=== PATIENT | female | born 1960 | race Caucasian/White ===

== ENCOUNTER 2022-12-16 11:02 | Observation (INO) ==
[2022-12-16] MEDS ORDERED: ASPIRIN CHEWABLE PO STA (11:07)
[2022-12-16 11:21] LABS: BASOPHILS # (AUTO) 0.1 K/uL (0-0.2); BASOPHILS % (AUTO) 0.7 % (0.0-3.0); EOSINOPHILS # (AUTO) 0.3 K/ul (0.0-0.7); EOSINOPHILS % (AUTO) 2.6 % (0.0-7.0); HEMATOCRIT 48.2 % (37.0-47.0); HEMOGLOBIN 15.8 g/dl (12.0-16.0); IMMATURE GRANULOCYTE % (AUTO) 0.2 % (0.0-5.0); LYMPHOCYTES # (AUTO) 4.2 K/uL (0.60-3.4); LYMPHOCYTES % (AUTO) 41.6 (10.0-50.0); MEAN CORPUSCULAR HEMOGLOBIN 28.1 pg (27.0-31.0); MEAN CORPUSCULAR HGB CONC 32.8 (31.8-35.4); MEAN CORPUSCULAR VOLUME 85.8 fl (81.0-99.0); MONOCYTES # (AUTO) 0.8 K/uL (0.4-2.0); MONOCYTES % (AUTO) 8.1 (0-10); NEUTROPHILS # (AUTO) 4.8 K/ul (2.0-6.9); NEUTROPHILS % (AUTO) 46.8 % (42.2-75.2); PLATELET COUNT 246 10^3/uL (140-440); RDW COEFFICIENT OF VARIATION 13.1 % (11.6-14.8); RED BLOOD COUNT 5.62 10^6/ul (4.20-5.40); WHITE BLOOD COUNT 10.18 K/ul (4.6-10.2)
[2022-12-16 11:32] LABS: ALANINE AMINOTRANSFERASE 28.2 U/L (0-35); ALKALINE PHOSPHATASE 85.5 U/L (53-141); ASPARTATE AMINO TRANSFERASE 37.6 U/L (14-36); BILIRUBIN,TOTAL 0.98 mg/dL (0.2-1.3); BLOOD UREA NITROGEN 17.3 mg/dL (7-17); CARBON DIOXIDE 28.6 mmol/L (22-30.0); CHLORIDE 103.6 mmol/L (98-107); CREATININE 0.79 mg/dL (0.60-1.30); GLUCOSE 92.1 mg/dL (74-106); POTASSIUM 3.71 mmol/L (3.5-5.1); SODIUM 141.6 mmol/L (134.5-145); TOTAL PROTEIN 8.93 g/dL (6.3-8.2)
--- NOTE | 2022-12-16 11:37 | ED.PDOC ---
General ED Provider: Dr. 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 Patient reports she has had increasing chest tightness and pain for months No hx of ACS or echo/stress testing Patient had a stroke in the past with L sided sensory deficits She cannot describe details of stroke well-she is a poor historian No diaphoresis, no nausea, no vomiting She came to the ED because the chest pain was migrating to Her L arm and face Her symptoms are mild to non existent know but were worse last night per patient Full dose aspirin given Time Seen by Provider: 12/16/22 11:06 Information Source: Patient Primary Care Provider: WENDY SANDERS Nursing and Triage Documentation Reviewed and Agree: Yes Does patient meet sepsis criteria?: No System Inflammatory Response Syndrome: Not Applicable Sepsis Protocol: For patient's 13 years and over: Temp is 96.8 and below OR 101 and greater Pulse >90 BPM Resp >20/minute Acutely Altered Mental Status Are patient's symptoms suggestive of a new infection, such as: -Pneumonia -Skin, Soft Tissue -Endocarditis -UTI -Bone, Joint Infection -Implantable Device -Acute Abdominal Infection -Wound Infection -Meningitis -Blood Stream Catheter Infection -Unknown Review of Systems Review Of Systems Constitutional: Denies Chills, Diaphoresis or Fever Eyes: Denies Blindness, Blurred vision or Foreign body sensation Ears, Nose, Mouth, Throat: Denies Ear pain or Ear discharge Respiratory: Denies Cough, Short of air or Wheezing Cardiac: Reports Chest pain and Lightheadedness; Denies Irregular heart rate, Palpitations or Syncope GI: Denies Abdomen distended, Abdominal pain or Diarrhea : Denies Burning, Dysuria or Discharge Musculoskeletal: Denies Back pain or Joint swelling Skin: Denies Bruising or Lesions Neurological: Denies Anxiety or Depressed Endocrine: Denies Excessive sweating, Flushing or Intolerance to cold Hematologic/Lymphatic: Denies Anemia or Easy bruising All Other Systems: Reviewed and Negative [facility] Social History Smoking and tobacco status: Never smoker Physical Exam Physical Exam Appearance: Reports Well-appearing, No pain distress and Obese Ill-appearing: Not Applicable Pain Distress: Not Applicable Eyes: Reports TREVOR and EOMI ENT: Reports Ears normal and Nose normal Neck: Supple Respiratory: Reports Airway patent and Breath sounds clear Cardiovascular: Reports RRR and Pulses normal GI/: Reports Soft and Nontender Musculoskeletal: Reports Normal strength and ROM intact Skin: Reports Warm and Dry Neurological: Reports Sensation intact and Motor intact Psychiatric: Reports Affect appropriate and Mood appropriate Interpretation EKG Interpretation Time of EKG #1: 11:07 Rate: Normal Rhythm: Sinus Ectopy: None [place]: NL ST Segment: Normal Interpretation: rate 83 RBBB no previous for comparison, THis EKG interpreted by nj Critical Care Note Critical Care Note Total Critical Care Time (mins): 0 Course Course 12/16/22 11:15 12/16/22 11:15 Orders, Labs, Meds: Lab Review 12/16/22 12/16/22 11:15 13:31 WBC 10.18 RBC 5.62 H Hgb 15.8 Hct 48.2 H MCV 85.8 MCH 28.1 MCHC 32.8 RDW Coeff of Nithya 13.1 Plt Count 246 Immature Gran % (Auto) 0.2 Neut % (Auto) 46.8 Lymph % (Auto) 41.6 [place] % (Auto) 8.1 Eos % (Auto) 2.6 Baso % (Auto) 0.7 Neut # (Auto) 4.8 Lymph # (Auto) 4.2 H [place] # (Auto) 0.8 Eos # (Auto) 0.3 Baso # (Auto) 0.1 Immature Gran # (Auto) 0.0 Sodium 141.6 Potassium 3.71 Chloride 103.6 Carbon Dioxide 28.6 Anion Gap 13.11 BUN 17.3 H Creatinine 0.79 Estimated GFR (MDRD) 74.00 BUN/Creatinine Ratio 21.89 Glucose 92.1 Calcium 9.50 Total Bilirubin 0.98 AST 37.6 H ALT 28.2 Alkaline Phosphatase 85.5 Troponin I < 0.012 Total Protein 8.93 H Albumin 5.00 Globulin 3.93 Albumin/Globulin Ratio 1.27 D-Dimer 2182.21 H SARS CoV-2 RNA Rapid KAHLIL Negative Orders Category Date Time Status ADMIT OBSERVATION [PLACE PATIENT OBSERVATION] .TO ADMISSION 12/16/22 14:23 Active MEDSURG (MONITORED BED) EKG-(ED ONLY) Stat CARDIO 12/16/22 11:07 Completed NPO REMINDER: IMAGING ONCE CARE 12/16/22 11:54 Completed TELEMETRY MONITORING TELE CARE 12/16/22 14:25 Active ED ALTERNATIVE DISPUTE RESOLUTION MEDIATOR APPLIED .ONCE EMERGENCY 12/16/22 11:07 Active ED IV/MEDIPORT/POWERPORT .ONCE EMERGENCY 12/16/22 11:07 Active CBC W/ AUTO DIFF Stat LAB 12/16/22 11:15 Completed COMPREHENSIVE METABOLIC PANEL Stat LAB 12/16/22 11:15 Completed COVID [SARS COV-2 RNA RAPID KAHLIL] Stat LAB 12/16/22 13:31 Completed D-DIMER Stat LAB 12/16/22 11:15 Completed TROPONIN I Stat LAB 12/16/22 11:15 Completed 0.9 % Sodium Chloride [Saline Flush] MEDS 12/16/22 11:07 Active 1 syr IVF PRN PRN Aspirin [Aspirin Chewable] MEDS 12/16/22 11:07 Discontinued 324 mg PO ONCE STA CT CHEST PE PROTOCOL Stat RADS 12/16/22 11:54 Completed CXR [CHEST, 2 VIEWS PA & LAT] Stat RADS 12/16/22 11:07 Completed Medications Generic Name Dose Route Start Last Admin Trade Name Freq PRN Reason Stop Dose Admin Sodium Chloride 1 syr 12/16/22 11:07 0.9% Sodium Chloride 10 Ml Disp.Syrin IVF PRN PRN To flush IV Discontinued Medications Generic Name Dose Route Start Last Admin Trade Name Freq PRN Reason Stop Dose Admin Aspirin 324 mg 12/16/22 11:07 12/16/22 11:56 Aspirin 81 Mg Tab.Chew PO 12/16/22 11:08 324 mg ONCE STA Administration Vital Signs: Temp Pulse Resp BP Pulse Ox 12/16/22 11:10 98.1 F 92 16 161/91 H 98 d dimer 2000+, CT PE ordered MDM: Patient is a 62 yo F here for CHest pain Patient afebrile and vitally stable Hx from patient Chart review by me COnsult to Hospitalist team Dr. Lavell Blanco 3+ labs and 3 Images reviewed by me WDX: Chest pain rule out myocardial infarction, sepsis, PE, Stemi but these are less likely Patient amenable to observation We discussed plan and findings SDOH: Patient underinsured will improve with observation and Hospitalist support All questions answered GISEL Risk Score GISEL Risk Score: Risk Score Odds of by 30D 0 0.1 (0.1-0.2) 1 0.3 (0.2-0.3) 2 0.4 (0.3-0.5) 3 0.7 (0.6-0.9) 4 1.2 (1.0-1.5) 5 2.2 (1.9-2.6) 6 3.0 (2.5-3.6) 7 4.8 (3.8-6.1) Discharge Plan Discharge Patient Disposition: PLACED OBSERVATION Discharge Problem: Right bundle branch block, D-dimer, elevated, Chest pain, rule out acute myocardial infarction, Chest tightness Did you review [place] OPHTHALMOLOGY TECHNICIAN for ALL controlled substances?: No ED Provider: JHON ISABEL Condition: Good Physician Progress Note: []
[2022-12-16 11:44] LABS: TROPONIN I < 0.012 ng/ml (0.0000-0.120)
--- NOTE | 2022-12-16 11:55 | DI ---
EXAM: TWO-VIEW CHEST HISTORY: Chest pain TECHNIQUE: Frontal views of the chest were obtained. Comparison 02/28/2013. FINDINGS: The heart is stable size. Lungs are clear. The pulmonary vasculature appears normal. IMPRESSION: No active cardiopulmonary disease.
--- NOTE | 2022-12-16 13:27 | CT ---
EXAM: CT ANGIOGRAM CHEST. HISTORY: Chest pain. Elevated D-dimer. COMPARISON: Radiograph earlier the same day. TECHNIQUE: Multiple axial images of the chest were obtained following intravenous administration of 75 mL Omnipaque 350, low osmolar. Images were reformatted in the sagittal and coronal plane. 3-D an d maximum intensity projection reformatted images were created on an independent workstation. FINDINGS: No pulmonary arterial filling defect although evaluation of subsegmental branches is nondi agnostic due to suboptimal timing of the contrast bolus. No main pulmonary artery enlargement or rig ht heart strain. No aortic dissection. Heart size is mildly enlarged. There is no pericardial effu amy Calcified lymph nodes present. No lymphadenopathy. Mild bilateral ground-glass opacities with some mosaic attenuation. There is no consolidation, pleur al effusion or pneumothorax. There has been previous sleeve gastrectomy. No acute abnormality within the upper abdomen. Degenerative changes present in the spine. IMPRESSION: 1. No pulmonary embolus to the segmental level. 2. Nonspecific bilateral ground-glass opacities with mosaic attenuation, which are most suggestive o f air trapping. 3. Cardiomegaly. 4. Evidence of prior granulomatous disease. All CT scans are performed using dose optimization techniques as appropriate to the performed exam an d include at least one of the following: Automated exposure control, adjustment of the mA and/or kV according t o size, and the use of iterative reconstruction technique.
[2022-12-16 14:06] LABS: SARS COV-2 RNA RAPID NAAT NEGATIVE (NEGATIVE)
[2022-12-16] MEDS ORDERED: NITROSTAT SL PRN (14:22)
[2022-12-16] MEDS ORDERED: TYLENOL PO PRN (14:22)
[2022-12-16] MEDS ORDERED: MYLANTA SUSP PO PRN (14:27)
[2022-12-16] MEDS ORDERED: ZOFRAN 4 MG/2 ML IVP PRN (14:27)
[2022-12-16 14:51] LABS: CHOLESTEROL 192.7 mg/dL (0-200); HDL CHOLESTEROL 49.5 mg/dL (35-80); TRIGLYCERIDES 159.8 mg/dL (0-150)
[2022-12-16 15:26] VITALS: BMI 39.2
--- NOTE | 2022-12-16 15:28 | PCM ---
Date of Service Date Seen by Provider: 12/16/22 Time Seen by Provider: 15:40 Admit Day/Time Admission Date: 12/16/22 Reason for Admission Chief Complaint: CHEST PAIN, RIGHT BBBB, RULE OUT ND ELEVATED D-[facility] Hospital Provider Hospital Provider: BECKY GONZALEZ, [facility]3]ist Group Primary Care Physician Primary Care Physician: WENDY SANDERS History of Present Illness History of Present Illness: 62 yo female presented to the ER today with complaints of chest pain. Patient states she has been experiencing intermittent chest pain for the last 2 months. Describes the pain as sharp stabbing, located midsternal to left sided, and radiates through to her back. No aggravating or alleviating factors. No SOB, nausea, heartburn, or diaphoresis associated with it. Has been fatigued and has a headache when her BP is elevated. Has pmh of stroke, GENE, and HTN. Reported that she stopped taking her BP medication because she thought it was doing better. Recently her SBP was in the 200s and she saw her PCP to be restarted on medication. Case Discussed With Case Discussed With: Patient's case was discussed with the ER Physicians, Dr. Isabel [facility] Medical History (Updated 12/16/22 @ 15:59 by BECKY GONZALEZ) FH: cholecystectomy Z83.79 - Family history of other diseases of the digestive system (ICD-10) Hypertension I10 - Essential (primary) hypertension (ICD-10) Obstructive sleep apnea on CPAP G47.33 - Obstructive sleep apnea (adult) (pediatric) (ICD-10) Z99.89 - Dependence on other enabling machines and devices (ICD-10) Stroke I63.9 - Cerebral infarction, unspecified (ICD-10) Surgical History H/O eye surgery Z98.890 - Other specified postprocedural states (ICD-10) H/O gastric sleeve Z90.3 - Acquired absence of stomach [part of] (ICD-10) Family History Mother Melanoma Social History Smoking and tobacco status: Never smoker Alcohol intake: never Substance use type: does not use Allergies Allergies Allergy/AdvReac Type Severity Reaction Status Date / Time morphine AdvReac Verified 05/01/21 14:05 Current Medications Home Medications lisinopril 20 mg-hydrochlorothiazide 12.5 mg tablet (Zestoretic) 1 tab PO DAILY 12/16/22 [History Confirmed 12/16/22 Last Taken 12/16/22] Home Acetaminophen (Acetaminophen 325 Mg Tablet) 650 mg PO Q4H PRN PRN Reason: Mild Pain Al Hydroxide/Mg Hydroxide (Mag Hydrox/Al Hydrox/Simeth 30 Ml Cup) 30 ml PO BID PRN PRN Reason: Heartburn Aspirin (Aspirin 81 Mg Tablet.Dr) 81 mg PO DAILYWM KENNEDI Nitroglycerin (Nitroglycerin 0.4 Mg Tab.Subl) 0.4 mg SL Q5MIN X 3 DOSES PRN PRN Reason: Chest Pain Ondansetron HCl (Ondansetron Hcl/Pf 4 Mg/2 Ml Sdv) 4 mg IVP Q8HR PRN PRN Reason: Nausea / Vomiting Sodium Chloride (0.9% Sodium Chloride 10 Ml Disp.Syrin) 1 syr IVF PRN PRN PRN Reason: To flush IV Sodium Chloride (0.9% Sodium Chloride 10 Ml Disp.Syrin) 1 syr IVF Q8HR KENNEDI Discontinued Medications Aspirin (Aspirin 81 Mg Tab.Chew) 324 mg PO ONCE STA Stop: 12/16/22 11:08 Last Admin: 12/16/22 11:56 Dose: 324 mg Review of Systems Constitutional: Reports Fatigue Head: Reports Normocephalic and Atraumatic Eyes: Reports No symptoms Ears: Reports No symptoms Nose: Reports No symptoms Mouth: Reports No symptoms Throat: Reports No symptoms Cardiovascular: Reports Chest pain, Chest Pressure and High Blood Pressure Respiratory: Reports No symptoms Gastrointestinal: Reports No symptoms Genitourinary: Reports No Symptoms Musculoskeletal: Reports No symptoms Endocrine: Reports No symptoms Hematology: Reports No symptoms Neurological: Reports Headache Psychiatric: Reports No symptoms Physical examination Most Recent Vital Signs: Most Recent Vital Signs Temperature 98.1 F 12/16/22 11:10 Temperature Source Temporal Artery Scan 12/16/22 11:10 Pulse Rate 92 12/16/22 11:10 Respiratory Rate 16 12/16/22 11:10 Blood Pressure 161/91 H 12/16/22 11:10 O2 Sat by Pulse Oximetry 98 12/16/22 11:10 Height 5 ft 6 in 12/16/22 11:10 Weight 244 lb 12/16/22 11:10 Appearance: Positive Well-nourished, No Apparent Distress, Alert and Oriented x3 and Obese Skin: Positive [place], Warm, Good Turgor and Good Color HEENT: Positive Normocephalic, Atraumatic and PERRLA Neck: Positive Supple, Non-Enlarged Thyroid and Midline Trachea Chest/Lungs: Positive Symmetrical With Equal Breath Sounds, Clear to Auscultation Bilaterally and Good Air Movement all 4 Lung [place] Heart: Positive RRR, Pulses Normal, No S3 Auscultated and No S4 Auscultated GI/: Positive Soft, Nontender, Bowel Sounds Normal, No Distention and No Organomegaly Musculoskeletal: Positive Not Examined Extremities: Positive Intact Peripheral Pulses, Stable Joints Without Laxity and Good ROM in All Joints Neurological: Positive Sensation Intact, Motor intact, Reflexes Intact, Alert, Oriented and Muscle Strength 5/5 in Upper and Lower Extremities Bilaterally Psychiatric: Positive Oriented x4, Appropriate Mood, Appropriate Affect, Intact Memory, Good Short-Term Recall, Good Long-Term Recall and Normal Insight Labs This Visit Labs This Visit: Labs This Visit 12/16/22 12/16/22 11:15 13:31 WBC 10.18 RBC 5.62 H Hgb 15.8 Hct 48.2 H MCV 85.8 MCH 28.1 MCHC 32.8 RDW Coeff of Nithya 13.1 Plt Count 246 Immature Gran % (Auto) 0.2 Neut % (Auto) 46.8 Lymph % (Auto) 41.6 [place] % (Auto) 8.1 Eos % (Auto) 2.6 Baso % (Auto) 0.7 Neut # (Auto) 4.8 Lymph # (Auto) 4.2 H [place] # (Auto) 0.8 Eos # (Auto) 0.3 Baso # (Auto) 0.1 Immature Gran # (Auto) 0.0 Sodium 141.6 Potassium 3.71 Chloride 103.6 Carbon Dioxide 28.6 Anion Gap 13.11 BUN 17.3 H Creatinine 0.79 Estimated GFR (MDRD) 74.00 BUN/Creatinine Ratio 21.89 Glucose 92.1 Calcium 9.50 Total Bilirubin 0.98 AST 37.6 H ALT 28.2 Alkaline Phosphatase 85.5 Troponin I < 0.012 Total Protein 8.93 H Albumin 5.00 Globulin 3.93 Albumin/Globulin Ratio 1.27 D-Dimer 2182.21 H SARS CoV-2 RNA Rapid KAHLIL Negative Imaging Imagining: Date of Service: 12/16/22 Ordering Physician: JHON ISABEL DO Procedure(s): CT CHEST PE PROTOCOL IMPRESSION: 1. No pulmonary embolus to the segmental level. 2. Nonspecific bilateral ground-glass opacities with mosaic attenuation, which are most suggestive of air trapping. 3. Cardiomegaly. 4. Evidence of prior granulomatous disease. Ordering Physician: JHON ISABEL DO Procedure(s): CHEST, 2 VIEWS PA & LAT IMPRESSION: No active cardiopulmonary disease. EKG Interpretation EKG Interpretation: RBBB unknown if new or old, per Dr. Isabel Review Statement Review Statement: I have independently reviewed and interpreted the labs/EKGs/imaging that were ordered by the ER provider. I have reviewed all outside records that are availa ble currently in our EMR including imaging/notes/labs from previous visits. Plan Plan: 1. Chest pain r/o ACS - serial troponins and EKGs, telemetry, VSQ4H, unable to take asa due to gastric surgery, checking lipid panel and hemoglobin A1c, stress test and echo tomorrow 2. Hypertension - chronic, stable, continue home medication 3. Elevated D-Dimer - CTA ruled out PE, no signs of DVT, stress test and echo tomorrow, monitor for changes DVT Prophylaxis: Early ambulation Time Spent: Greater than 80 minutes spent with patient, 50% of the time spent with this patient was devoted to counseling and coordination of care. Advanced Care Plannin minutes spent discussing advance care planning. Disposition: Admit to Med/Surg Observation Discussed Plan of Care with Dr. Monte Medications Medication Orders: Medications Ordered Category Date Time Status 0.9 % Sodium Chloride [Saline Flush] MEDS 12/16/22 11:07 Active 1 syr IVF PRN PRN 0.9 % Sodium Chloride [Saline Flush] MEDS 12/16/22 21:00 Ordered 1 syr IVF Q8HR Acetaminophen [Tylenol] MEDS 12/16/22 14:22 Ordered 650 mg PO Q4H PRN Aspirin [Aspirin EC] MEDS 12/17/22 08:30 Ordered 81 mg PO DAILYWM Mag Hydrox/Al Hydrox/Simeth [Mylanta Susp] MEDS 12/16/22 14:27 Ordered 30 ml PO BID PRN Nitroglycerin [Nitrostat] MEDS 12/16/22 14:22 Ordered 0.4 mg SL Q5MIN X 3 DOSES PRN Ondansetron HCl/Pf [Zofran 4 mg/2 ml] MEDS 12/16/22 14:27 Ordered 4 mg IVP Q8HR PRN
[2022-12-17 05:09] LABS: BASOPHILS # (AUTO) 0.1 K/uL (0-0.2); BASOPHILS % (AUTO) 0.9 % (0.0-3.0); EOSINOPHILS # (AUTO) 0.2 K/ul (0.0-0.7); EOSINOPHILS % (AUTO) 3.3 % (0.0-7.0); HEMATOCRIT 44.1 % (37.0-47.0); HEMOGLOBIN 14.4 g/dl (12.0-16.0); IMMATURE GRANULOCYTE % (AUTO) 0.1 % (0.0-5.0); LYMPHOCYTES # (AUTO) 2.7 K/uL (0.60-3.4); LYMPHOCYTES % (AUTO) 38.8 (10.0-50.0); MEAN CORPUSCULAR HGB CONC 32.7 (31.8-35.4); MEAN CORPUSCULAR VOLUME 85.6 fl (81.0-99.0); MONOCYTES # (AUTO) 0.6 K/uL (0.4-2.0); MONOCYTES % (AUTO) 9.2 (0-10); NEUTROPHILS # (AUTO) 3.3 K/ul (2.0-6.9); NEUTROPHILS % (AUTO) 47.7 % (42.2-75.2); PLATELET COUNT 214 10^3/uL (140-440); RED BLOOD COUNT 5.15 10^6/ul (4.20-5.40); WHITE BLOOD COUNT 6.94 K/ul (4.6-10.2)
[2022-12-17 05:21] LABS: ALANINE AMINOTRANSFERASE 24.3 U/L (0-35); ALBUMIN 4.19 g/dL (3.5-5.0); ALKALINE PHOSPHATASE 67.2 U/L (53-141); ASPARTATE AMINO TRANSFERASE 32.7 U/L (14-36); BILIRUBIN,TOTAL 0.97 mg/dL (0.2-1.3); CALCIUM 8.99 mg/dL (8.4-10.2); CARBON DIOXIDE 29.5 mmol/L (22-30.0); CHLORIDE 105.7 mmol/L (98-107); CREATININE 0.69 mg/dL (0.60-1.30); POTASSIUM 3.53 mmol/L (3.5-5.1); SODIUM 139.8 mmol/L (134.5-145); TOTAL PROTEIN 7.46 g/dL (6.3-8.2)
[2022-12-17] MEDS ORDERED: ASPIRIN EC PO SCH (08:30)
[2022-12-17] MEDS ORDERED: LISINOPRIL HYDROCHLOROTHIAZIDE PO SCH (09:00)
[2022-12-17 10:07] VITALS: BP 121/75; RESP 14
[2022-12-17] MEDS ORDERED: PRILOSEC PO ONE (10:17)
[2022-12-17 10:25] VITALS: TEMP 97.9
--- NOTE | 2022-12-17 10:44 | DCSUM ---
Admission Date Admission Date: 12/16/22 Discharge Date Discharge Date: 12/17/22 Admission Diagnosis Admission Diagnosis: Chest Pain Discharge Diagnosis Discharge Diagnosis: Chest Pain Hospital Provider Hospital Provider: BECKY GONZALEZ[place] [facility] [place] Primary Care Physician: WENDY SANDERS Summary of History and Physical Summary of History and Physical: 62 yo female presented to the ER today with complaints of chest pain. Patient states she has been experiencing intermittent chest pain for the last 2 months. Describes the pain as sharp stabbing, located midsternal to left sided, and radiates through to her back. No aggravating or alleviating factors. No SOB, nausea, heartburn, or diaphoresis associated with it. Has been fatigued and has a headache when her BP is elevated. Has pmh of stroke, GENE, and HTN. Reported that she stopped taking her BP medication because she thought it was doing better. Recently her SBP was in the 200s and she saw her PCP to be restarted on medication. Plan: 1. Chest pain r/o ACS - serial troponins and EKGs, telemetry, VSQ4H, unable to take asa due to gastric surgery, checking lipid panel and hemoglobin A1c, stress test and echo tomorrow 2. Hypertension - chronic, stable, continue home medication 3. Elevated D-Dimer - CTA ruled out PE, no signs of DVT, stress test and echo tomorrow, monitor for changes DVT Prophylaxis: Early ambulation Time Spent: Greater than 80 minutes spent with patient, 50% of the time spent with this patient was devoted to counseling and coordination of care. Advanced Care Plannin minutes spent discussing advance care planning. Disposition: Admit to Med/Surg Observation Hospital Course Subjective: Pain improved today. Had 1 nitro overnight which did not resolve the pain after administration. Stress test and echo completed today. Stress test was negative. Echo showed LVEF of 66% and enlarged left ventricle. No additional chest pain. D/c home with prilosec to assist with GERD symtoms. Encouraged to take BP meds appropriately to avoid further enlargement. Appearance: Pleasant, No Apparent Distress, Alert, Well-appearing and Well- nourished HEENT: MMM, Supple and No JVD CVS: No Murmur, No Rubs, No Gallop and No JVD Abdomen: Soft, Non-Tender and No Distention Respiratory: No Dyspnea Extremities: No Edema and No Calf Tenderness Vital Signs: Most Recent Vital Signs Temperature 97.9 F 12/17/22 10:00 Temperature Source Temporal Artery Scan 12/17/22 10:00 Temperature Source Temporal Artery Scan 12/16/22 11:10 Pulse Rate 70 12/17/22 10:00 Respiratory Rate 14 12/17/22 10:00 Blood Pressure 121/75 12/17/22 10:00 Blood Pressure Mean 90 12/17/22 10:00 Blood Pressure Right Arm 150/81 12/16/22 15:18 Blood Pressure Location Left Arm 12/17/22 10:00 Blood Pressure Position Supine 12/17/22 10:00 O2 Sat by Pulse Oximetry 94 L 12/17/22 10:00 Oxygen Delivery Method Room Air 12/17/22 10:00 Height 5 ft 6 in 12/16/22 15:18 Weight 243 lb 6.4 oz 12/16/22 15:18 Telemetry Type Remote Telemetry 12/17/22 07:00 Telemetry Monitoring Continues 12/17/22 07:00 Telemetry Heart Rate 61 12/17/22 07:00 EKG ND Interval 0.19 12/17/22 07:00 EKG QRS Interval 0.09 12/17/22 07:00 Telemetry Strip Reading SR 12/17/22 07:00 Lab Results Last 24 Hours: 12/17/22 12/16/22 12/16/22 04:56 17:30 14:47 WBC 6.94 RBC 5.15 Hgb 14.4 Hct 44.1 MCV 85.6 MCH 28.0 MCHC 32.7 RDW Coeff of Nithya 13.0 Plt Count 214 Immature Gran % (Auto) 0.1 Neut % (Auto) 47.7 Lymph % (Auto) 38.8 [place] % (Auto) 9.2 Eos % (Auto) 3.3 Baso % (Auto) 0.9 Neut # (Auto) 3.3 Lymph # (Auto) 2.7 [place] # (Auto) 0.6 Eos # (Auto) 0.2 Baso # (Auto) 0.1 Immature Gran # (Auto) 0.0 Sodium 139.8 Potassium 3.53 Chloride 105.7 Carbon Dioxide 29.5 Anion Gap 8.13 BUN 12.0 Creatinine 0.69 Estimated GFR (MDRD) 86.00 BUN/Creatinine Ratio 17.39 Glucose 85.0 Hemoglobin A1c Calcium 8.99 Total Bilirubin 0.97 AST 32.7 ALT 24.3 Alkaline Phosphatase 67.2 Troponin I < 0.012 < 0.012 Total Protein 7.46 Albumin 4.19 Globulin 3.27 Albumin/Globulin Ratio 1.28 Triglycerides Cholesterol LDL Cholesterol, Calc VLDL Cholesterol HDL Cholesterol Cholesterol/HDL Ratio D-Dimer SARS CoV-2 RNA Rapid KAHLIL 12/16/22 12/16/22 13:31 11:15 WBC 10.18 RBC 5.62 H Hgb 15.8 Hct 48.2 H MCV 85.8 MCH 28.1 MCHC 32.8 RDW Coeff of Nithya 13.1 Plt Count 246 Immature Gran % (Auto) 0.2 Neut % (Auto) 46.8 Lymph % (Auto) 41.6 [place] % (Auto) 8.1 Eos % (Auto) 2.6 Baso % (Auto) 0.7 Neut # (Auto) 4.8 Lymph # (Auto) 4.2 H [place] # (Auto) 0.8 Eos # (Auto) 0.3 Baso # (Auto) 0.1 Immature Gran # (Auto) 0.0 Sodium 141.6 Potassium 3.71 Chloride 103.6 Carbon Dioxide 28.6 Anion Gap 13.11 BUN 17.3 H Creatinine 0.79 Estimated GFR (MDRD) 74.00 BUN/Creatinine Ratio 21.89 Glucose 92.1 Hemoglobin A1c 5.62 Calcium 9.50 Total Bilirubin 0.98 AST 37.6 H ALT 28.2 Alkaline Phosphatase 85.5 Troponin I < 0.012 Total Protein 8.93 H Albumin 5.00 Globulin 3.93 Albumin/Globulin Ratio 1.27 Triglycerides 159.8 H Cholesterol 192.7 LDL Cholesterol, Calc 111 VLDL Cholesterol 32 H HDL Cholesterol 49.5 Cholesterol/HDL Ratio 3.9 L D-Dimer 2182.21 H SARS CoV-2 RNA Rapid KAHLIL Negative Discharge Instructions Discharge Planning: Discharge Planning > 40 minutes Heart Healthy diet Activity as tolerated. Omeprazole 20 mg PO daily Follow-up with PCP within 1 week to eval toleration of omeprazole and improvement of condition. Medications Given This Visit: Medications Generic Name Dose Route Start Last Admin Trade Name Freq PRN Reason Stop Dose Admin Al Hydroxide/Mg Hydroxide 30 ml 12/16/22 14:27 Mag Hydrox/Al Hydrox/Simeth 30 Ml Cup PO BID PRN Heartburn Nitroglycerin 0.4 mg 12/16/22 14:22 12/16/22 21:05 Nitroglycerin 0.4 Mg Tab.Subl SL 0.4 mg Q5MIN X 3 DOSES PRN Administration Chest Pain Non-Formulary Medication 1 tab 12/17/22 09:00 12/17/22 08:59 Lisinopril-Hydrochlorothiazide [Zestoretic] PO 1 tab DAILY KENNEDI Administration Ondansetron HCl 4 mg 12/16/22 14:27 Ondansetron Hcl/Pf 4 Mg/2 Ml Sdv IVP Q8HR PRN Nausea / Vomiting Sodium Chloride 1 syr 12/16/22 11:07 0.9% Sodium Chloride 10 Ml Disp.Syrin IVF PRN PRN To flush IV Sodium Chloride 1 syr 12/16/22 21:00 12/17/22 05:17 0.9% Sodium Chloride 10 Ml Disp.Syrin IVF 1 syr Q8HR KENNEDI Administration Medications Given This Visit: Medications at Discharge (Home Meds & RX) lisinopril 20 mg-hydrochlorothiazide 12.5 mg tablet (Zestoretic) 1 tab PO DAILY 12/16/22 Discharge Plan Discharge Activity Restrictions/Additional Instructions: Medications: Resume your home medication as prescribed. NEW: Omeprazole 20mg daily Activity: Resume as tolerated Diet: Cardiac Follow-up with PCP within 1 week to eval toleration of omeprazole and improvement of condition. Instructions: Chest Pain (DC), GERD (Gastroesophageal Reflux Disease) (DC), Low-Sodium Diet (DC) Patient Disposition: HOME SELF-CARE Prescriptions: New omeprazole 20 mg capsule,delayed release(DR/EC) 20 mg PO DAILY Qty: 30 0RF Continued lisinopril-hydrochlorothiazide [Zestoretic] 20-12.5 mg tablet 1 tab PO DAILY Did you review [place] WIRE TAPER for ALL controlled substances?: No Discussed opioids are addictive and Narcan is available by prescription or from pharmacy.: No Condition: Good
--- NOTE | 2022-12-17 13:23 | STRESSECHO ---
Date of Test: 12/17/2022 Ordering Physician: HOSPITALIST Occupation:[employer] Reason for Exam: HTN, CHEST PAIN Smoking History: NONE Height: 66" Weight: 244 LBS Current Medications: LISINOPRIL Resting EKG: SINUS RHYTHM/ RIGHT BUNDLE BRANCH BLOCK Target Heart Rate: 135/159 S-T SEGMENT STAGE MPH/GRADE HEART RATE BPM BLOOD PRESSURE MMHG RHYTHM +/- ELEVATION DEPRESSION SYMPTOMS AT REST 70 BPM 140/70 MMHG SR X NONE 1 1.7/10% 121 BPM 130/70 MMHG SR X NONE 2 2.5/12% 3 3.4/14% 4 4.2/16% 5 5.0/18% Immediately After 134 BPM 170/60 MMHG SR X SOB Minutes Post Exercise 1" 97 BPM 160/70 MMHG SR X NONE Minutes Post Exercise 5" 88 BPM 130/60 MMHG SR X NONE DURATION OF EXERCISE: 4:06 MAXIMUM HEART RATE REACHED: 134 BPM REASON FOR TERMINATION: SHORT OF AIR 94% OXYGEN SATURATION WITH EXERCISE/98% AT REST ON ROOM AIR INTERPRETATION: 1. TEST NEGATIVE FOR ISCHEMIC ST-T WAVE CHANGES 2. NO CHEST PAIN OR DISCOMFORT 3. BLOOD PRESSURE RESPONSE--NORMAL 4. NO ARRHYTHMIAS NORMAL LEFT VENTRICLE CONTRACTILITY--RESTING AND POST EXERCISE MTDD
--- NOTE | 2022-12-17 13:25 | ECHOSTRESS ---
Date of Exam: 12/17/2022 Physician: HOSPITALIST Reason for Echo: HTN, CHEST PAIN M-Mode Normal Adult Results LV Dimensions Normal Adult Results AoV Opening excursions >1.6 LVEDD-base- 3.5-5.8 Ao root dimensions 2.0-3.7 LVESD-base- 3.1-4.6 L. Atrium dimensions 1.9-3.8 Post. Wall thickness 0.8-1.1 IV septum (thickness) 0.7-1.2 Post. Wall excursion 0.72-1.3 Septal motion Systolic motion R. Ventricular cavity 1.5-2.0 LVEF 60% Paradoxical septal wall motion 2-D: NORMAL LEFT VENTRICLE CONTRACTILITY--RESTING AND POST EXERCISE M-MODE: MV: AV: TV: PV: CHAMBER SIZE: WALL MOTION: NORMAL LEFT VENTRICLE CONTRACTILITY--RESTING AND POST EXERCISE PERICARDIUM: INTERPRETATION: 1. NORMAL LEFT VENTRICLE CONTRACTILITY--RESTING AND POST EXERCISE MTDD
--- NOTE | 2022-12-17 13:30 | ECHO2D ---
Date of Exam: 12/17/2022 Ordering Physician: NURISIST Room #: [id number] Reason for Echo: HTN, CHEST PAIN M-Mode Normal Adult Results LV Dimensions Normal Adult Results AoV Opening excursions >1.6 >1.6 LVEDD-base- 3.5-5.8 5.2 Ao root dimensions 2.0-3.7 3.8 LVESD-base- 3.1-4.6 L. Atrium dimensions 1.9-3.8 4.1 Post. Wall thickness 0.8-1.1 1.3 IV septum (thickness) 0.7-1.2 1.3 Post. Wall excursion 0.72-1.3 NORMAL Septal motion NORMAL Systolic motion R. Ventricular cavity 1.5-2.0 NORMAL LVEF 60% 66% Paradoxical septal wall motion NORMAL 2-D : 2-D M Mode Echocardiogram was performed using apical four chamber and left parasternal long and short axis views. Mitral, tricuspid and aortic valves appear to be normal. Contractility of the left ventricle seems to be normal, so is the cavity size. ENLARGED LEFT ATRIAL CAVITY. Aortic root appears to be normal. MAYBE MILD PERICARDIAL EFFUSION. There is no thrombus noted in the left ventricle or left atrial cavity M-MODE: MV: NORMAL AV: NORMAL TV: NORMAL PV: CHAMBER SIZE: ENLARGED LEFT ATRIAL CAVITY WALL MOTION: NORMAL PERICARDIUM: MILD TO TRACE EFFUSION INTERPRETATION: 1. LEFT VENTRICLE HYPERTROPHY WITH ENLARGED LEFT ATRIAL CAVITY 2. NORMAL VALVES 3. NORMAL LEFT VENTRICLE CAVITY SIZE AND CONTRACTILITY 4. TRACE TO MILD PERICARDIAL EFFUSION MTDD
== END 2022-12-17 14:05 | disposition home or self-care (01) ==
LOC: MEDSURG A 11:02 → ED 11:02 → MEDSURG A 14:50
PROVIDERS: ADMIT Hospitalist; ATTEND Nurse Practitioner Family